=== PATIENT | female | born 1985 | race Caucasian/White ===

== ENCOUNTER 2022-03-13 12:10 | Outpatient (CLI) | payer OTHER, SELFPAY ==
--- NOTE | 2022-03-13 12:15 | CRLHL7_ITS ---
For Patients: As a result of the Century Cures Act, medical imaging exams and procedure reports are released immediately into your electronic medical record. You may view this report before your referring provider. If you have questions, please contact your health care provider. INDICATION: Third trimester scan, evaluate growth. COMPARISON: 12/05/2021 TECHNIQUE: Real time glez scale imaging of the fetus was performed. FINDINGS: Sonographic imaging demonstrates a single living intrauterine gestation. Fetus demonstrates a regular cardiac rate of 131 beats per minute. Fetus has a vertex position. The placenta lies fundal posterior. Amniotic fluid volume appears normal and there is a single deepest vertical pocket: 4.2 cm. The estimated weight is 2859gm which lies at the 82nd %. On the prior OB ultrasound exam dated 12/05/2021 the estimated weight was at the 90th%. BPD 69th percentile. HC 79th percentile. AC 88th percentile. FL 68th percentile. The HC/AC ratio measures 1.02 range (0.92-1.07). IMPRESSION: Sonographic gestational age 36 weeks 2 days and sonographic due date 04/08/2022. Sonographic age 10 days ahead of the clinical age. Estimated weight 82nd percentile. Abdominal circumference 88th percentile. Dictated by Allan Esqueda MD @ 03/13/2022 1:36:44 PM (Electronically Signed)
== END 2022-03-13 12:11 | disposition home or self-care (01) ==
LOC: US 12:11
PROVIDERS: PCP Family Medicine; Visit Provider Obstetrics & Gynecology
DX: Z34.93 Encounter for supervision of normal pregnancy, unspecified, third trimester (principal); Z3A.36 36 weeks gestation of pregnancy
CPT/HCPCS: 76816

== ENCOUNTER 2022-03-20 14:25 | Outpatient (CLI) | payer OTHER, SELFPAY ==
[2022-03-21 21:54] LABS: Strep B DNA Probe NEGATIVE (Negative)
== END 2022-03-20 14:26 | disposition home or self-care (01) ==
LOC: NFLDREF 14:25
PROVIDERS: PCP Family Medicine; Visit Provider Physician Assistant
DX: O09.523 Supervision of elderly multigravida, third trimester (principal); Z3A.35 35 weeks gestation of pregnancy
CPT/HCPCS: 87081; 87653

== ENCOUNTER 2022-03-26 03:49 | Inpatient (IN) | payer OTHER, SELFPAY ==
[2022-03-26] VITALS (78 sets, daily range): BP systolic 91–174; BP diastolic 50–104; PULSE 66–127; RESP 15–16; TEMP 36.6–37.6; O2SAT 91–100
[2022-03-26] MEDS: miSOPROStoL 25 MCG/0.25 TABLET PO ×2 (04:09→05:58)
--- NOTE | 2022-03-26 04:18 | P.OBHP_ITS ---
OB - H&P: HPI Labor/Induction History of Present Illness Time Seen by Provider: 04:18 Date Seen: 03/26/22 Chief Complaint: HPI: Mindi is a 36 year old 2 para 0010 at 36 and 5/7 weeks gestation by last menstrual period, who presents with possible leaking fluid and small amount of vaginal bleeding. On evaluation in triage AmniSure was positive. Irregular contractions that the patient was not feeling. Normal movement reported. She denies: Headache, visual changes, right upper quadrant/midepigastric pain, swelling, nausea/vomiting. LMP: 07/12/21. BRIDGETT = 04/18/22 by LMP c/w 10.5wk USN. Number of visits: 10 OBSTETRIC HISTORY Miscarriages: 1 miscarriage. Blighted ovum diagnosis at 8w5d suction D&C 05/2020 Abortions: denies GYNECOLOGIC HISTORY STDs: denies Last Pap: 05/25: Normal with negative HPV. Pap with HPV at her 6 week visit Abnormal Pap: denies MENSTRUAL HISTORY LMP: 07/12/21 Date Reliability: within a couple days accurate Menses Every: 28 days Amount/Length: 3-5 days, moderate CURRENT MEDICATIONS: See electronic medical record MEDICAL HISTORY depression, has previously seen a therapist, and taken Lexapro. Stopped 2018. 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 Doing good Seat Belt Use: Routinely Smoking: Denies past/present Alcohol/day: Denies while Caffeine: denies Drug Use: Denies past/present Chicken Pox: Yes as a child MRSA: Denies Planning to breastfeed: yes Chief complaint: Leaking fluid from the vagina. : 2 Para: 0 History of Present Dating criteria: based on LMP care: good care Ultrasounds: normal 1st trimester US and normal mid trimester US complications comment: PPROM at 36w5d. AMA. Review of Systems Status of ROS: Reports: 10 or more systems reviewed and unremarkable except as noted in History and below Meds Home Medications and Allergies Home Medications Medication Instructions Recorded Confirmed Type aspirin 81 mg chewable tablet 81 mg PO DAILY 02/13/22 03/20/22 History calcium citrate 200 mg 1 tab PO DAILY 02/13/22 03/20/22 History calcium-vitamin D3 6.25 mcg (250 unit) tablet prenat.vits,cass,cfd-dbrs-jtfjo 1 tab PO QDAY 02/13/22 03/20/22 History ferrous sulfate 325 mg (65 mg 325 mg PO DAILY 03/20/22 03/20/22 History iron) tablet Allergies Allergy/AdvReac Type Severity Reaction Status Date / Time strawberry Allergy Unknown Unknown Verified 03/20/22 14:20 OB - H&P: Exam Physical Exam: Vital signs: Pulse BP 80 147/83 H 03/26/22 03:37 03/26/22 03:37 Narrative: EXAM: VITAL SIGNS: Elevated BP. Remainder of vital signs normal. She is afebrile. GENERAL: She is alert and oriented times three in no acute distress. HEART: Regular rate and rhythm. LUNGS: Clear to auscultation bilaterally. ABDOMEN: Soft, nontender, and gravid with positive bowel sounds throughout. HEART TONES: 130's, moderate variability, (+) accels, (-) decels. Reactive. Category 1. PRESENTATION: Vertex by Gabriel's maneuvers. SVE per nursin cm/0 %/-4/post/med. Preston score 1 EXTREMITIES: Without cyanosis, clubbing, or edema. No varicosities are seen. NEUROLOGIC: DTR's at Bilateral patella: 2+/2 equal, no clonus. OB - Problem Based A/P Additional Plan (1) premature rupture of membranes (PPROM) with unknown onset of labor: Status: Acute Plan: 1. Admit to the center for induction of labor starting with p.o. Cytotec due to extremely unfavorable cervical exam 2. GBS negative so does not require antibiotic prophylaxis in labor. (2) Elevated BP without diagnosis of hypertension: Status: Acute Plan: 1. Preeclampsia labs ordered: CBC without diff, AST, ALT, creatinine, BUN and urine P/C ratio: Results pending. 2. Continue to monitor blood pressure closely. Start magnesium prophylaxis for severe preeclampsia. Patient denies symptoms of headache, visual changes, swelling, right upper quadrant/midepigastric pain and nausea/vomiting
[2022-03-26 04:26] LABS: Hematocrit 34.3 % (33.0-51.0); Hemoglobin* 11.8 gm/dL (12.0-16.0); Mean Corpuscular HGB Conc 34 gm/dL (32-36); Mean Corpuscular Hemoglobin 32 pg (26-34); Mean Corpuscular Volume 92 fL (80-100); Platelet Count* 175 K/uL (140-440); Red Blood Count 3.72 m/uL (4.00-5.20); White Blood Count* 13.36 K/uL (4.50-11.00)
[2022-03-26 04:29] LABS: Slide Review Reflex No
[2022-03-26 04:39] LABS: Alanine Aminotransferase* 18 U/L (4-35); Aspartate Amino Transferase* 28 U/L (12-35); Blood Urea Nitrogen* 5 mg/dL (5-24); Creatinine* 0.4 mg/dL (0.5-1.5); Estimated Glomerular Filt Rate 130 ml/min
[2022-03-26 04:40] LABS: Total Protein Urine 54 mg/dL
[2022-03-26 04:41] LABS: Creatinine Urine 51.2 mg/dL
[2022-03-26 05:16] LABS: SARS PCR* Negative SARS-CoV-2 (Negative)
[2022-03-26 05:18] LABS: Amphetamine Screen Urine Negative (Negative); Barbiturate Screen Urine Negative (Negative); Benzodiazepines Screen Urine Negative (Negative); Cannabinoid Screen Urine Negative (Negative); Cocaine Screen Urine Negative (Negative); Methadone Screen Urine Negative (Negative); Methamphetamines Screen Urine Negative (Negative); Opiate Screen Urine Negative (Negative); Oxycodone Screen Urine Negative (Negative); Phencyclidine Screen Urine Negative (Negative); Tricyclic Antidepressant Urine Negative (Negative)
[2022-03-26] MEDS: LACTATED RINGERS 1000 ML 1,000 ML 500 ML IV (08:45)
[2022-03-26 09:21] LABS: Basophils Percent Auto 0.2 % (0.0-3.0); Eosinophils Percent Auto 0.6 % (0.0-7.0); Hematocrit 35.4 % (33.0-51.0); Immature Granulocytes Abs Auto 0.13 K/uL (0.00-0.30); Lymphocytes Percent Auto 8.6 % (20-44); Mean Corpuscular HGB Conc 34 gm/dL (32-36); Mean Corpuscular Hemoglobin 31 pg (26-34); Mean Corpuscular Volume 92 fL (80-100); Monocytes Percent Auto 5.7 % (0.0-11.0); Neutrophils Percent Auto 84.1 % (42.0-72.0); Platelet Count* 171 K/uL (140-440); RDW Coefficient of Variation % 15.2 % (11.5-15.5); Red Blood Count 3.84 m/uL (4.00-5.20); White Blood Count* 15.54 K/uL (4.50-11.00)
[2022-03-26 09:23] LABS: Slide Review Reflex No
[2022-03-26 09:34] LABS: INR 0.92 (0.91-1.10); Partial Thromboplastin Time* 27 Seconds (23-33); Prothrombin Time 12.7 Seconds
[2022-03-26 09:35] LABS: Fibrinogen* 472 mg/dL (200-450)
--- NOTE | 2022-03-26 09:43 | P.OBPN_ITS ---
Pain Control Time Seen by Provider: 08:30 Date Seen: 03/26/22 Pain control: tolerating well (But desires epidural soon) Comments: Mindi, has had 2 doses of cytotec. At bedside to assess her labor. RN expressed concerns about amount of bleeding. Mod-large amount of thin liquid-y blood noted on pad previous pad and on the floor of the bathroom. Pt states feeling increased cramping/ctx. Able to tolerate them, but will likely desire epidural soon. Partner at bedside for support. Contractions Monitor mode: External Contraction frequency: 2 Contraction pattern: Regular Contraction intensity: Mild (mild - mod) Pelvic Exam Dilation (cm): 3 Effacement (%): 70 Station: -2 Fetus (Single) Amniotic Membrane Status: SROM Assessment and Plan Plan: continue present management Comments: at 36.5 weeks GBS neg PROM Preeclampsia w/o severe features R/o abruption Dr Mendez consulted for concerns of increased bleeding. Stable mom and fetus at this time. Decision made to hold labor augmentation at this time to allow for further assessment and monitoring. Will consider pitocin for augmentation if needed. CBC and coags ordered. If WNL, pt may have epidural as desired. Continue to monitor blood pressures Continuous monitoring. Call CNM or OB director of recruitment and admissions for concerns Pt aware to notify RN if having any increased pain or bleeding. Anticpate progress to NVD.
--- NOTE | 2022-03-26 09:54 | PM.OBPNL ---
Pain Control Date Seen: 03/26/22 Comments: I was consulted by Funmi Burnham CNM, for concern regarding the amount of bleeding that Mindi has had. Funmi reports watery bleeding. Patient has received two doses of oral cytotec at this point. Mindi reports increasing pain with contractions and has requested an epidural. Mindi also has preeclampsia, currently without severe features. HELLP labs have been stable, and her most recent blood pressure was 128/94. On exam, her abdomen is soft. By Gabriel's, I suspect infant is in the 7 lb range. Her complete blood count shows no anemia or thrombocytopenia, and her INR and PTT are within normal ranges. Fibrinogen is appropriately elevated. Contractions Monitor mode: External Contraction frequency: 2 Contraction pattern: Regular Pelvic Exam Dilation (cm): 3 Effacement (%): 70 Station: -2 Comments: per Funmi Burnham CNM Fetus (Single) Amniotic Membrane Status: SROM status: Category l Comments: Baseline 125, accelerations present, no decelerations, moderate variability Assessment and Plan Assessment: induction ongoing Comments: Patient may have epidural as desired. Continue to monitor bleeding and vital signs. If labor does not progress, Pitocin augmentation would be appropriate as next intervention.
[2022-03-26] MEDS: ROPIVACAINE 0.2% 100 ml 100 ML 12 MG EPIDURAL ×2 (10:11→18:02)
--- NOTE | 2022-03-26 10:21 | P.ANBPRC_ITS ---
[facility] Medical History (Updated 03/26/22 @ 07:23 by Malika Huertas MD) Encounter for supervision of normal first in second trimester History of iron deficiency anemia Mild preeclampsia premature rupture of membranes (PPROM) with unknown onset of labor Surgical History (Updated 02/12/22 @ 08:41 by Adamaris Mckeon) Status post adenoidectomy Family History (Updated 02/02/22 @ 11:48 by Adamaris Mckeon) Mother Depression Anxiety OCD (obsessive compulsive disorder) High blood pressure Brother Depression Maternal Grandfather Myocardial infarction, Onset Age: 80 Father Colon cancer, Onset Age: 50 Depression Maternal Grandmother Lung cancer Social History (Updated 02/02/22 @ 11:49 by Adamaris Mckeon) 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: , 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, 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-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 Social drinker (2/week) Smoking Status: Never smoker Meds Home Medications and Allergies Home Medications Medication Instructions Recorded Confirmed Type aspirin 81 mg chewable tablet 81 mg PO DAILY 02/13/22 03/26/22 History calcium citrate 200 mg 1 tab PO DAILY 02/13/22 03/26/22 History calcium-vitamin D3 6.25 mcg (250 unit) tablet prenat.vits,cass,rxu-luex-atfya 1 tab PO QDAY 02/13/22 03/26/22 History ferrous sulfate 325 mg (65 mg 325 mg PO DAILY 03/20/22 03/26/22 History iron) tablet Allergies Allergy/AdvReac Type Severity Reaction Status Date / Time strawberry Allergy Unknown Unknown Verified 03/20/22 14:20 Results Labs Labs: Laboratory Results - last 24 hr 03/26/22 03/26/22 03/26/22 04:10 04:10 04:10 WBC RBC Hgb Hct MCV MCH MCHC RDW Coeff of Shyla Plt Count Neut % (Auto) Lymph % (Auto) Christian % (Auto) Eos % (Auto) Baso % (Auto) Neut # (Auto) Lymph # (Auto) Christian # (Auto) Eos # (Auto) Baso # (Auto) Abs Immat Gran (auto) INR APTT Fibrinogen BUN Creatinine Estimated GFR AST ALT Urine Creatinine 51.2 Protein/Creatinin Ratio 1.00 H Urine Total Protein 54 Urine Opiates Screen Negative Ur Oxycodone Screen Negative Urine Methadone Screen Negative Ur Propoxyphene Screen Negative Ur Barbiturates Screen Negative U Tricyclic Antidepress Negative Ur Phencyclidine Scrn Negative Ur Amphetamines Screen Negative U Methamphetamines Scrn Negative U Benzodiazepines Scrn Negative Urine Cocaine Screen Negative U Marijuana (THC) Screen Negative SARS-CoV-2 (PCR) Negative SARS-CoV-2 Blood Type Antibody Screen 03/26/22 03/26/22 03/26/22 04:15 04:15 04:15 WBC 13.36 H RBC 3.72 L Hgb 11.8 L Hct 34.3 MCV 92 MCH 32 MCHC 34 RDW Coeff of Shyla Plt Count 175 Neut % (Auto) Lymph % (Auto) Christian % (Auto) Eos % (Auto) Baso % (Auto) Neut # (Auto) Lymph # (Auto) Christian # (Auto) Eos # (Auto) Baso # (Auto) Abs Immat Gran (auto) INR APTT Fibrinogen BUN 5 Creatinine 0.4 L Estimated GFR 130 AST 28 ALT 18 Urine Creatinine Protein/Creatinin Ratio Urine Total Protein Urine Opiates Screen Ur Oxycodone Screen Urine Methadone Screen Ur Propoxyphene Screen Ur Barbiturates Screen U Tricyclic Antidepress Ur Phencyclidine Scrn Ur Amphetamines Screen U Methamphetamines Scrn U Benzodiazepines Scrn Urine Cocaine Screen U Marijuana (THC) Screen SARS-CoV-2 (PCR) Blood Type A Positive Antibody Screen NEGATIVE 03/26/22 03/26/22 09:13 09:13 WBC 15.54 H RBC 3.84 L Hgb 12.0 Hct 35.4 MCV 92 MCH 31 MCHC 34 RDW Coeff of Shyla 15.2 Plt Count 171 Neut % (Auto) 84.1 H Lymph % (Auto) 8.6 L Christian % (Auto) 5.7 Eos % (Auto) 0.6 Baso % (Auto) 0.2 Neut # (Auto) 13.10 H Lymph # (Auto) 1.30 Christian # (Auto) 0.90 Eos # (Auto) 0.10 Baso # (Auto) 0.00 Abs Immat Gran (auto) 0.13 INR 0.92 APTT 27 Fibrinogen 472 H BUN Creatinine Estimated GFR AST ALT Urine Creatinine Protein/Creatinin Ratio Urine Total Protein Urine Opiates Screen Ur Oxycodone Screen Urine Methadone Screen Ur Propoxyphene Screen Ur Barbiturates Screen U Tricyclic Antidepress Ur Phencyclidine Scrn Ur Amphetamines Screen U Methamphetamines Scrn U Benzodiazepines Scrn Urine Cocaine Screen U Marijuana (THC) Screen SARS-CoV-2 (PCR) Blood Type Antibody Screen Vital Signs Vital Signs: Last Vital Signs Temp 98 F 03/26/22 10:16 Pulse 80 03/26/22 10:20 Resp 15 03/26/22 04:15 BP 129/87 03/26/22 10:20 Pulse Ox 100 03/26/22 10:16 Weight: 85.956 kg Anesthesia Procedures Epidural Insertion Patient Location: OB Start Time: : Stop Time: 10:30 Start Date: 03/26/22 Stop Date: 03/26/22 Reason for Block: procedure for pain Patient Position: sitting Performed By: Pedro Knutson Preanesthetic Checklist: IV checked, risks and benefits discussed, surgical consent, monitors and equipment checked, pre-op evaluation, timeout performed and anesthesia consent Prep: chlorhexidine gluconate Monitoring: blood pressure monitoring, continuous pulse oximetry and heart rate Approach: midline Vertebral Space: lumbar (1-5) Epidural Technique: SAVANNAH saline Needle Type: Tuohy needle Injection Technique: continuous catheter Needle gauge: 17 Needle Length (cm): 10 cm Needle Insertion Depth (cm): 6 Catheter Gauge: 19 Catheter Type: multi-orifice Catheter at skin depth (cm): 12 Test Dose Result: negative and lidocaine 1.5% with epinephrine 1 to 200,000
--- NOTE | 2022-03-26 11:41 | PM.OBPNL ---
Pain Control Time Seen by Provider: 11:42 Date Seen: 03/26/22 Pain control: epidural Comments: Mindi is comfortable with her epidural. Partner remains at bedside for support. Bleeding has slowed at this time. Contractions Monitor mode: External Contraction frequency: 3 (1-3) Contraction pattern: Regular Contraction intensity: Mild (mild - mod) Pelvic Exam Dilation (cm): 4 Effacement (%): 80 Station: -2 Fetus (Single) Amniotic Membrane Status: SROM status: Category l Assessment and Plan Plan: continue present management Comments: at 36.5 weeks GBS neg Preeclampsia w/o severe features PROM Early labor after cytotec X 2 doses Less concern for abruption as bleeding has slowed and ctx pattern has evolved to 2-3 min. Will continue to monitor closely. Continue to monitor BPs closely, WNL since epidural placement. Consider pitocin augmentation if little change w/ next exam. Dr. Mendez aware of status.
[2022-03-26] MEDS: LACTATED RINGERS 1000 ML 1,000 ML 125 ML IV ×2 (16:08→22:49)
--- NOTE | 2022-03-26 20:38 | SUR.OPER ---
PATIENT QUESTIONS ANSWERED SATISFACTORILY PREOPERATIVELY.? PATIENT BROUGHT TO OR #5 PER CART.? Patient positioned supine on OR #5 bed.? The perioperative?team supported arms bilaterally on arm boards.? Final approval of positioning by surgeon.?
[2022-03-26] MEDS: KETOROLAC 15 MG/ML inj IVP (20:41)
--- NOTE | 2022-03-26 21:15 | PM.OBPRCCS ---
Procedure Pre-op/Post-op diagnoses: Pre-Op/Post-Op Diagnoses Operation Date: 03/26/22 20:00 <No data on this case meets the specified criteria> Procedure Done: Global Procedure Details: Procedures Operation Date: 03/26/22 20:00 Actual Procedure Side Surgeon p Section Xin Mendez MD Estimated blood loss (mL): 1,178 Disposition: floor Anesthesia type: Epidural Complications: Leftward hysterotomy extension and intraoperative hemorrhage Narrative: PREOPERATIVE DIAGNOSIS: Arrest of descent POSTOPERATIVE DIAGNOSIS: Arrest of descent Paratubal cysts PROCEDURES: Primary low-transverse section Paratubal cystectomies SURGEON: Xin Mendez MD ANESTHESIA: Epidural IV FLUIDS: 900 mL crystalloid QBL: 1178 mL FINDINGS: 1. Male , cephalic OA presentation, Apgars of 8 and 9, weight pending at time of this dictation 2. Long inferior extension of hysterotomy along the left side approximating the cervix and upper vagina. 3. Two simple paratubal cysts, 3 and 2 cm in greatest dimension. 4. Otherwise appearance to uterus, bilateral tubes and ovaries. COMPLICATIONS: Leftward hysterotomy extension approximately to level of cervix PROCEDURE IN DETAIL: Patient was taken to the operating room with IV running. She received cefazolin in preoperative prophylaxis. Epidural anesthesia had previously been administered. Salinas catheter was inserted. She was prepped and draped in the usual sterile fashion. Anesthesia was tested and found to be adequate. A low-transverse skin incision was made with a scalpel and carried through to the underlying layer of fascia with the scalpel. The subcutaneous fat was dissected off the underlying fascia with Bovie. The fascia was nicked in the midline with a scalpel, and this incision was extended laterally with scissors. The rectus muscles were in the midline. Peritoneum was identified and entered bluntly. Bovie was used to widen this opening laterally. John Paul O retractor was inserted and tightened down, providing excellent visualization of the lower uterine segment. The bladder reflection was found to be advanced along the lower uterine segment. A bladder flap was created with a combination of sharp and blunt dissection. Low-transverse uterine incision was made with a scalpel. Incision was widened bluntly. The infant's head was grasped through the hysterotomy and delivered with the help of fundal pressure. The remainder of the body delivered without incident. Cord was clamped and cut after 30 seconds. Infant was handed off to attending nurses. The placenta was delivered with gentle traction on the cord. The uterus was cleaned of all clots and debris with the dry lap pad. Abundant bleeding was noted at this time. The leftward hysterotomy extension was not initially visible due to bleeding. Therefore, a running, lock suture was used along the left inferior aspect of the incision, moving medially to laterally, and till visualization was obtained of the angle of the extension. This was then reapproximated with 0 Vicryl in a running, locked fashion, continuing through to to the right angle of the hysterotomy. Second layer of the same suture was used in imbricating fashion to obtain hemostasis. There was persistent oozing noted along this hysterotomy extension. To clarify the location of the bladder reflection, the bladder was back filled with 60 mL of sterile formula. This confirmed that the bladder was immediately adjacent to the hysterotomy extension, despite dissection of the bladder flap. Gelfoam was placed along this extension. The uterus had been exteriorized during much of the reapproximation of this extension. The adnexa were examined with findings as noted above. The anti mesenteric surface of the largest paratubal cyst was nicked with Bovie. The overlying portions of the broad ligament surrounding it were dissected off sharply, and the vascular pedicle was divided with Bovie. The smaller paratubal cyst was pulled away from the fimbria with gentle traction, and the vascular pedicle was divided with Bovie. Bovie was used for hemostasis at the dissection bed of the larger cyst. Both cysts were sent to pathology. The uterus was placed back in patient's abdomen. The John Paul O retractor was removed. The hysterotomy was reexamined and found to be hemostatic along its entire length, including the extension. An additional small piece of Gelfoam was placed adjacent to the left most angle of the extension. The peritoneum was reapproximated with 2 0 Vicryl in a running fashion. The rectus muscles were examined and found to be hemostatic. The fascia was reapproximated with 0 Vicryl in a running fashion. Subcutaneous fat was irrigated and Bovie used on oozing vessels. The subcutaneous fat was reapproximated with 2 0 plain gut suture in an interrupted fashion. The skin was closed with a subcuticular stitch of 4-0 Vicryl. Surgical glue was applied above this. Patient tolerated procedure well was taken to recovery area in stable condition. [place] total score - 1 minute: 8 total score - 5 minute: 9 OB Delivery Proc Additional Procedures Other: Yes (excision of paratubal cystsssss)
--- NOTE | 2022-03-26 21:36 | W.PM.NB ---
Nerve Block Nerve Block Time Seen by Provider: 21:05 Date Seen: 03/26/22 Type of block requested by surgeon for post-operative analgesia: TAP Side: bilateral Time out performed: Yes Verification of patient name: Yes Verification of date of : Yes Site marking: site marked Name of person performing procedure: DIANE Haq Continuous monitoring Was continuous monitoring of O2 sat, B/P, surveillance system monitor, recorded every 15 minutes?: Yes Procedure Checklist: sterile prep, needles and gloves Ultrasound guided. Images saved: Yes Medications given in 5ml increments after negative aspiration: Marcaine (15 ml/side, 30 ml total) %: 0.25 mL: 15 Needle gauge: 20 and Exparel (5ml/side, 10 total) mL: 5 Needle gauge: 20 Patient tolerated procedure well: Yes Block Charges Block Charge (with Pro Fee): TAP Bilateral Use of Ultrasound Machine for Block: Yes- US Guidance/pain block
[2022-03-27] VITALS (22 sets, daily range): BP systolic 114–133; BP diastolic 74–93; PULSE 80–105; RESP 16; TEMP 36.7–37.3; O2SAT 95–100
[2022-03-27] MEDS: KETOROLAC 30 MG/ML inj IVP ×4 (02:47→21:41)
[2022-03-27 07:01] LABS: Basophils Percent Auto 0.1 % (0.0-3.0); Eosinophils Percent Auto 0.1 % (0.0-7.0); Hemoglobin* 9.6 gm/dL (12.0-16.0); Immature Granulocytes Abs Auto 0.11 K/uL (0.00-0.30); Lymphocytes Percent Auto 7.4 % (20-44); Mean Corpuscular HGB Conc 34 gm/dL (32-36); Mean Corpuscular Hemoglobin 32 pg (26-34); Mean Corpuscular Volume 93 fL (80-100); Monocytes Percent Auto 6.9 % (0.0-11.0); Platelet Count* 170 K/uL (140-440); RDW Coefficient of Variation % 15.7 % (11.5-15.5); White Blood Count* 23.05 K/uL (4.50-11.00)
[2022-03-27 07:02] LABS: Slide Review Reflex No
[2022-03-27] MEDS: LACTATED RINGERS 1000 ML 500 ML IV (07:03)
[2022-03-27 07:32] LABS: Alanine Aminotransferase* 14 U/L (4-35); Aspartate Amino Transferase* 31 U/L (12-35); Blood Urea Nitrogen* 8 mg/dL (5-24); Creatinine* 0.6 mg/dL (0.5-1.5); Estimated Glomerular Filt Rate 118 ml/min
[2022-03-27] MEDS: DOCUSATE SODIUM 100 MG CAPSULE PO (08:45)
[2022-03-27] MEDS: FERROUS SULFATE 325 MG TABLET PO (08:45)
--- NOTE | 2022-03-27 09:10 | PM.OBPNCS1 ---
OB - PN: A/P Assessment and Plan (1) premature rupture of membranes (PPROM) with unknown onset of labor: Status: Acute (2) Elevated BP without diagnosis of hypertension: Status: Resolved Plan Plan: routine postop care OB - PN: Subj Subjective Date Seen: 03/27/22 Patient comments: no complaints, pain well controlled, tolerating diet and flatus present infant status: and doing well feeding status: exclusively Narrative: Day 1:? Vaginal Delivery at 36 and 5/7 weeks.? ?? Complications:? extension of hysterotomy with QBL 1178. Inadequate urine output overnight. The patient feels well.? The pain is well controlled with current medications.? She has no new complaints.? Urinary output was not adequate overnight. IV bolus completed. Salinas catheter remains in place. If adequate output after the bolus ok to remove urine Salinas.? Has a good appetite, is tolerating a general diet, is passing flatus, and has not had a bowel movement.? Has?scant amount of rubra lochia.? She is ambulating well with assistance to stand. Hgb 9.6. PO iron was previously ordered.? 36 year old on day 1.? 1. cares.? 2. Anticipate discharge tomorrow or Wednesday.? OB - PN: Obj Exam Physical Exam: Vital signs: Temp Pulse Resp BP Pulse Ox O2 Del Method 99.2 F 80 16 114/74 96 03/27/22 04:08 03/27/22 04:08 03/27/22 06:30 03/27/22 04:08 03/27/22 04:08 03/27/22 04:08 Constitutional: Constitutional: no acute distress Routine HEENT Exam: Head: Present normal inspection Routine Neck Exam: Neck: Present full ROM Routine Respiratory Exam: Respiratory: Present CTA bilaterally Routine Cardiovascular Exam: Cardiovascular: Present RRR Routine Abdominal Exam: Abdominal: Present soft and tenderness Fundus: Present firm Routine Exam: External: Present normal external exam Perineum Description: Normal Routine Extremities Exam: Extremities: Present full ROM Routine Back/Spine/Pelvis Exam: Back/Spine: Present full ROM Routine Neurological Exam: Neurological: Present alert and oriented X3 Routine Psychiatric Exam: Psychiatric: Present normal affect and normal thought process Wound Management: Examination: Present dressed, clean, dry and intact Comments: small dime sized area of drainage marked on the dressing OB - PN: Obj Data Labs Labs: Laboratory Results - last 24 hr 03/26/22 03/26/22 03/27/22 09:13 09:13 06:47 WBC 15.54 H 23.05 H RBC 3.84 L 3.00 L Hgb 12.0 9.6 L Hct 35.4 28.0 L MCV 92 93 MCH 31 32 MCHC 34 34 RDW Coeff of Shyla 15.2 15.7 H Plt Count 171 170 Neut % (Auto) 84.1 H 85.0 H Lymph % (Auto) 8.6 L 7.4 L Kendall % (Auto) 5.7 6.9 Eos % (Auto) 0.6 0.1 Baso % (Auto) 0.2 0.1 Neut # (Auto) 13.10 H 19.60 H Lymph # (Auto) 1.30 1.70 Kendall # (Auto) 0.90 1.60 H Eos # (Auto) 0.10 0.00 Baso # (Auto) 0.00 0.00 Abs Immat Gran (auto) 0.13 0.11 INR 0.92 APTT 27 Fibrinogen 472 H BUN Creatinine Estimated GFR AST ALT 03/27/22 03/27/22 06:47 06:47 WBC RBC Hgb Cancelled Hct MCV MCH MCHC RDW Coeff of Shyla Plt Count Neut % (Auto) Lymph % (Auto) Kendall % (Auto) Eos % (Auto) Baso % (Auto) Neut # (Auto) Lymph # (Auto) Kendall # (Auto) Eos # (Auto) Baso # (Auto) Abs Immat Gran (auto) INR APTT Fibrinogen BUN 8 Creatinine 0.6 Estimated GFR 118 AST 31 ALT 14
[2022-03-28 00:32] VITALS: BP 131/84; PULSE 87; RESP 16; TEMP 36.4; O2SAT 100
[2022-03-28] MEDS: KETOROLAC 30 MG/ML inj IVP (03:48)
[2022-03-28 03:52] VITALS: BP 126/81; PULSE 73; RESP 16; TEMP 36.8; O2SAT 96
[2022-03-28 08:30] VITALS: BP 142/89; PULSE 71; RESP 16; TEMP 36.5; O2SAT 100
[2022-03-28] MEDS: DOCUSATE SODIUM 100 MG CAPSULE PO (08:37)
[2022-03-28] MEDS: FERROUS SULFATE 325 MG TABLET PO (08:37)
[2022-03-28] MEDS: IBUPROFEN 600 MG TABLET PO ×3 (08:37→20:19)
--- NOTE | 2022-03-28 10:29 | PM.OBDSCS1 ---
DS: Providers Provider Time Seen by Provider: 10:29 Date Seen: 03/28/22 Date of admission: 03/26/22 03:49 Primary care physician: Flor Patel MD Admitting Clinician: Rosaura Martínez CNM Consults: Xin Mendez MD Attending Physician on discharge: Malika Huertas MD Date of Discharge: 03/28/22 DS: Diagnosis Discharge Diagnosis (1) S/P primary low transverse : Status: Acute (2) Mild preeclampsia: Status: Acute (3) premature rupture of membranes (PPROM) with unknown onset of labor: Status: Acute (4) AMA (advanced maternal age) multigravida 35+: Status: Resolved (5) AMA (advanced maternal age) primigravida 35+: Status: Acute (6) Anemia due to acute blood loss: Status: Acute (7) Lactating mother: Status: Acute DS: Medications Discharge Medications Other Medication Instructions: See discharge medication list Exam Const: Vital Signs, click to edit/add: Vital Signs - 24 hr 03/27/22 11:00 03/27/22 12:00 03/27/22 11:50 Temperature 98.9 F Pulse Rate [Pulse Oximeter] 104 H Respiratory Rate 16 16 16 Blood Pressure [Le ft Arm] 115/83 Pulse Oximetry 96 Oxygen Delivery Me thod Room Air 03/27/22 13:00 03/27/22 14:00 03/27/22 15:00 Temperature Pulse Rate [Pulse Oximeter] Respiratory Rate 16 16 16 Blood Pressure [Le ft Arm] Pulse Oximetry Oxygen Delivery Me thod 03/27/22 16:00 03/27/22 15:40 03/27/22 20:19 Temperature 98.1 F 98.1 F Pulse Rate [Pulse Oximeter] 105 H 96 Respiratory Rate 16 16 Blood Pressure [Le ft Arm] 127/93 H 126/85 Pulse Oximetry 100 100 Oxygen Delivery Me thod Room Air Room Air 03/27/22 19:37 03/28/22 00:32 03/28/22 03:52 Temperature 97.6 F 98.2 F Pulse Rate [Pulse Oximeter] 87 73 Respiratory Rate 16 16 16 Blood Pressure [Le ft Arm] 131/84 126/81 Pulse Oximetry 100 96 Oxygen Delivery Me thod Room Air Room Air 03/28/22 08:30 Temperature 97.7 F Pulse Rate [Pulse Oximeter] 71 Respiratory Rate 16 Blood Pressure [Le ft Arm] 142/89 H Pulse Oximetry 100 Oxygen Delivery Me thod Room Air OB - DS: Summary Hospital Course Hospital Course: HOSPITAL COURSE: Mindi is a 36 year old, G 2 now P 0111 admitted on 03/26/2022 at 3:00 a.m. at 36 Weeks, 5 Days gestation for pre term premature rupture of membranes. She had an uncomplicated primary low-transverse delivery for arrest of dilation. She delivered a viable male infant. She is breast and bottle feeding and reports things are going well. the patient has done well. Her blood pressure started rising this morning so she was started on labetalol 100 mg b.i.d. and was discharged home with this medication. I encouraged her to follow up next week for blood pressure check in the office. She has remained afebrile. DISCHARGE Vital Signs: See EMR Discharge Examination GENERAL APPEARANCE: normal affect, alert, no distress MOOD: appropriate CHEST: clear to auscultation HEART: regular rate and rhythm ABDOMEN: soft, non-tender the uterine fundus is at 2cm below Umbilicus, Midline and is appropriate for the stage of recovery. PERINEUM: no edema of the perineum EXTREMITIES: normal and no edema INCISION: Approximated, clean, dry and intact. Discharge Medication Orders: See New Medication Orders Disposition She is requesting discharge home. Discharge Instructions Discharge Instructions Discharge instructions were reviewed with the patient including signs and symptoms of infection and medications to use for pain. She will follow up in 6 weeks for a visit, sooner as needed. Symptoms to report to doctor: Drainage or increase in redness around your incision Bleeding that saturates more than one pad per hour Passing clots larger than the size of a golf ball Pain not relieved by prescribed medication Fever above 100.4 degrees Fahrenheit Foul vaginal odor Difficulty in emotions, mood and functions Thoughts of hurting yourself and/or Painful, reddened areas in your breast Any drainage, redness or tenderness in your IV/spinal site Severe headache that doesn't improve after taking medications Changes in vision, including temporary loss of vision, blurred vision, and/or light sensitivity Upper abdominal pain (usually under ribs on the right side) Decrease in urination or painful, frequent urinating Chest pain Shortness of breath Tenderness or pain with redness and/swelling in the calf(s) of your leg Nothing per Vagina: No intercourse, No tampons, No douching, For [address]: While taking [narcotic pain] medication. Lifting Restriction: 20 lbs Lifting Restriction Duration: 6 weeks Off Work or School: 8 weeks Follow Up Plan Surgeon Xin Mendez MD in 2 weeks for an incision check A nurse cotton presser, PA or BUMBOATER for the following: For a Blood pressure check next week between 03/30/22-04/01/22 Follow up visit with any Women's health clinic provider: at 6 weeks for a physical exam. Referrals Consultation: consultation services are available to all mothers and babies for the first year after delivery. To make an appointment, please call [phone]. Peripartum Data Procedures: Procedures Operation Date: 03/26/22 20:00 Actual Procedure Side Surgeon p Section Xin Mendez MD Gender: Male Time Spent with Patient Time attestation: Total time spent providing and/or coordinating discharge services: Discharge Plan Discharge Disposition: Home, Self-Care Date of Admission: 03/26/22 03:49 Attending Provider on Discharge: Malika Huertas Primary Care Provider: Flor Patel Condition: Improved Anticipated Discharge Date/Time: 03/29/22 21:08 Discharge Medications: New acetaminophen 500 mg Tablet 1,000 mg PO Q6H PRN (Reason: pain/fever) Qty: 0 0RF docusate sodium 100 mg Capsule 100 mg PO DAILY Qty: 0 0RF ibuprofen 600 mg Tablet 600 mg PO Q6H PRN (Reason: Pain) 30 Days Qty: 60 0RF oxycodone 5 mg Tablet 5 - 10 mg PO Q4H PRN (Reason: Pain) 7 Days Qty: 20 0RF labetalol 100 mg tablet 100 mg PO BID Qty: 60 2RF Continued prenat.vits,cass,wqn-wazm-upjjb Tablet 1 tab PO QDAY calcium citrate-vitamin D3 200 mg-6.25 mcg (250 unit) tablet 1 tab PO DAILY ferrous sulfate 325 mg (65 mg iron) tablet 325 mg PO DAILY Discontinued aspirin 81 mg tablet,chewable 81 mg PO DAILY Discharge Orders: Discharge Order (Routine); Ordered 03/28/22 Ordered By: Malika Huertas Patient Education: Preeclampsia During (DC), (DC) Discharge Diet: Regular Follow Up Appointments: Malika Huertas MD [Staff Physician] - Flor Patel MD [Primary Care Provider] - Xin Mendez MD [Staff Physician] - Forms: [employer] Info Instructions
[2022-03-28 12:20] VITALS: BP 126/86; PULSE 84; RESP 16; TEMP 36.7; O2SAT 100
[2022-03-28 16:05] VITALS: BP 127/86; PULSE 73; RESP 16; TEMP 36.4; O2SAT 99
[2022-03-28 20:10] VITALS: BP 121/79; PULSE 73; RESP 16; TEMP 36.9; O2SAT 98
[2022-03-28] MEDS: LABETALOL HCL 100 MG TABLET PO (20:19)
[2022-03-29 00:15] VITALS: BP 124/75; PULSE 73; RESP 16; TEMP 36.6; O2SAT 99
[2022-03-29 03:24] VITALS: BP 114/73; PULSE 75; RESP 16; TEMP 36.8
[2022-03-29] MEDS: IBUPROFEN 600 MG TABLET PO ×3 (03:27→15:19)
[2022-03-29 09:05] VITALS: BP 131/86; PULSE 75; RESP 18; TEMP 37.2; O2SAT 100
[2022-03-29] MEDS: LABETALOL HCL 100 MG TABLET PO (09:14)
[2022-03-29] MEDS: DOCUSATE SODIUM 100 MG CAPSULE PO (09:14)
[2022-03-29] MEDS: FERROUS SULFATE 325 MG TABLET PO (09:14)
[2022-03-29 12:55] VITALS: BP 123/83; PULSE 76; RESP 16; TEMP 36.4; O2SAT 99
== END 2022-03-29 15:22 | disposition home or self-care (01) | DRG 784 ==
LOC: OB OUT 03:49 → OB 03:51
PROVIDERS: Obstetrics & Gynecology; Admitting Provider Advanced Practice Midwife; PCP Family Medicine; Visit Provider Obstetrics & Gynecology
PROC: 10D00Z1 Extraction of Products of Conception, Low, Open Approach (ICD-10-PCS; CPT 59514; principal; 2022-03-26 19:45)
DX: O42.913 Preterm premature rupture of membranes, unspecified as to length of time between rupture and onset of labor, third trimester (principal); D62 Acute posthemorrhagic anemia; O90.81 Anemia of the puerperium; O14.04 Mild to moderate pre-eclampsia, complicating childbirth; O32.4XX0 Maternal care for high head at term, not applicable or unspecified; O34.83 Maternal care for other abnormalities of pelvic organs, third trimester; N83.8 Other noninflammatory disorders of ovary, fallopian tube and broad ligament; Z3A.36 36 weeks gestation of pregnancy; Z37.0 Single live birth
CPT/HCPCS: 01967; 36415; 59200; 64488; 76942; 80306; 82565; 82570; 84112; 84156; 84450; 84460; 84520; 85018; 85025; 85027; 85384; 85610; 85730; 86850; 86900; 86901; 87635; 88304; 88307; A9270; C9290; J1200; J1885; J2274; J2405; J2590; J2795; J3010; J3490; J7120; S0020

== ENCOUNTER 2022-05-11 14:07 | Outpatient (CLI) | payer OTHER, SELFPAY ==
--- NOTE | 2022-05-15 12:59 | W.PM.LAC.MC ---
Consult Note - Mom Date of Visit Date of visit: 05/11/22 staffing consultant: Rosa Elena Marin Visit Code: Visit Patient's Information Phone number: [phone] : 2 Para: 1 Allergies strawberry Allergy (Unknown, Verified 05/11/22 13:07) Unknown Mother's Medical History: Medical History (Updated 05/12/22 @ 15:43 by Xin Mendez MD) AMA (advanced maternal age) multigravida 35+ Anemia due to acute blood loss Depression Mild preeclampsia premature rupture of membranes (PPROM) with unknown onset of labor Work Plans: returns to work in 6 weeks Delivery Information Delivery type: Primary C/S; Labored (FTP) Weeks Gestation: 36 0/7 Gestational Age: AGA Weight: 3.487 kg Discharge Weight: 3.192 kg Baby's Information Baby's Age at Visit: 6 weeks Baby's Provider or Clinic: Dr. Camarillo ([facility] in [place]) Reason for Consult Reason for Consult: still having some trouble with latching, concern for lip tie Past Experience Past Experience: No Current Frequency of Day Feedings: about every 2 - 3 hours Frequency of Night Feedings: goes a little longer between feedings, but still wakes to feed 1 - 2 times Both Breasts: Yes Suck: fairly strong Latch: doesn't always have a good seal, milk sometimes leaks out of mouth Length of Time: feedings can take up to an hour Pumping Pumping: Yes (uses the wireless pump on the side baby doesn't nurse on ) Supplementing EMB Supplement: Yes (dad gives a bottle daily, he has less trouble with a bottle than at breast) Formula Supplement: No (initailly POC gave formula, have weaned from i) Baby Elimination Number of Wet Diapers a Day: 5- 6 times/day Number of BM a Day: 1 - 2 times/day Breast/Nipple Condition Breast Information: WNL, large Engorgement: No Maternal Nipple Condition - Left: Common Nipple Maternal Nipple Condition - Right: Common Nipple Sore Nipples: No Onsite Pre-Feed weight: 5.174 kg Post-Feed weight: 5.292 kg Milk Transferred (mL): 118 Pre-Nursing Left Nipple: Within Normal Limits Pre-Nursing Right Nipple: Within Normal Limits Post-Nursing Left Nipple: Within Normal Limits Post-Nursing Right Nipple: Within Normal Limits Assessments/Interventions Assessments/Interventions: Met with mom and this now six week old ex- late AGA baby for consult.? Mom is concerned for a lip or tongue tie b/c baby isn't satisfied for very long after nursing sessions that can last up to one hour.? She also states he looses the latch frequently and doesn't seems to have a good seal around the breast so milk will sometimes leak out.? She reports he usually sleeps for longer periods overnight.? She hasn't started pumping regularly with her electric pump, but purchased a wireless pump which she will use on one breast while she's nursing baby on the other.? Baby gets about one 4 oz bottle of EBM daily and she reports he has no trouble taking the bottle.? Breasts are large, but WNL- symmetrical with rounded lower quadrants.? Nipples are everted and don't flatten or retract with compression; no damage noted.? Baby has gained 76 grams/day since his last visit around 04/26/22 and is plotting around the 50th percentile.? Per mom he has equal ROM when turning his head and moving his extremities.? She denies any caput/cephalohematoma/bruising at delivery.? Baby's palate is WNL, his upper lip is somewhat difficult to flange.? He has a strong suck on a finger; the tongue extends past the finger and has good lateral movement.? His lower frenulum may be a little posterior.? Mom latched baby to the right side and he had a wide latch, mom was comfortable.? He maintained it for several minutes, but then started to slip off the breast.? When he came off he was repositioned so he was more tummy to tummy and mom was verbally coached to support her breast.? He latched on well and maintained it again for several minutes after mom removed the hand that was supporting her breast.? When he came off again and she re-latched him she maintained support of her breast and baby was able to keep a deep latch.? When finished baby was weighed and had transferred 62 ml.? Mom then switched him to the left and he started actively nursing again, maintaining a deep latch while mom kept support of her breast.? When he finished on the left side he had transferred 56 ml for a total of 118 ml.? Plan: 1. Nurse baby on both sides at each feeding (stop using the wireless pump on the side baby is not nursing from).? Also suggested she keep more support of her breast during feedings until his neck and jaw get a little stronger. 2. Could start pumping once/day to build a supply for her return to work and so dad can offer EBM. Suggested she use her regular pump as it's usually stronger and reserve the wireless pump for occasional use. 3. If she continues to have difficulty keeping baby latched and feedings aren't consolidating, asked her to call the office for a list of pediatric dentists so she can get him evaluated.? Am hopeful he just needs her to support her breast until he gets a little older. 4. F/U for his 2 month WCC and in prn.? Also encouraged her to consider Baby Talk.? 5. Mom and baby have the same PCP and the note for baby (same note for mom) was faxed on 05/13/22. Meds Home Medications and Allergies Home Medications Medication Instructions Recorded Confirmed Type prenat.vits,cass,hwt-bvoq-zpelh 1 tab PO QDAY 02/13/22 04/08/22 History ferrous sulfate 325 mg (65 mg 325 mg PO DAILY 03/20/22 04/08/22 History iron) tablet Allergies Allergy/AdvReac Type Severity Reaction Status Date / Time strawberry Allergy Unknown Unknown Verified 05/11/22 13:07
== END 2022-05-11 14:08 | disposition home or self-care (01) ==
PROVIDERS: PCP Family Medicine; Visit Provider Registered Nurse
DX: Z39.1 Encounter for care and examination of lactating mother (principal)
CPT/HCPCS: 99211

== ENCOUNTER 2024-05-08 11:57 | Outpatient (CLI) | payer OTHER, SELFPAY ==
--- NOTE | 2024-05-08 12:15 | CRLHL7_ITS ---
For Patients: As a result of the Century Cures Act, medical imaging exams and procedure reports are released immediately into your electronic medical record. You may view this report before your referring provider. If you have questions, please contact your health care provider. INDICATION: Pre-existing hypertension TECHNIQUE: Real time glez scale imaging of the fetus was performed. COMPARISON: None FINDINGS: Sonographic imaging demonstrates a single living intrauterine gestation. Fetus demonstrates a regular cardiac rate of 129 beats per minute. Fetus has a vertex position. The placenta lies posteriorly. Amniotic fluid volume appears normal and there is a single deepest pocket of 4.3 cm. The estimated weight is 2776gm which lies at the 86th %. BPD 67th percentile. HC 89th percentile. AC greater than 97th percentile. FL 11th percentile. The fetus was active and demonstrated normal breathing movements. There was normal flexion and extension of the trunk and extremities. IMPRESSION: Normal biophysical profile score 8/8. Sonographic gestational age 35 weeks 4 days and sonographic due date of 05/19/2024. Sonographic age 9 days ahead of the clinical age. Estimated weight 86th percentile. Abdominal circumference greater than 97th percentile. Dictated by Allan Esqueda MD @ 05/08/2024 12:39:35 PM (Electronically Signed)
== END 2024-05-08 11:58 | disposition home or self-care (01) ==
LOC: US 11:58
PROVIDERS: PCP Family Medicine; Visit Provider Obstetrics & Gynecology
DX: O10.913 Unspecified pre-existing hypertension complicating pregnancy, third trimester (principal); Z3A.35 35 weeks gestation of pregnancy
CPT/HCPCS: 76816; 76819; 82728

== ENCOUNTER 2024-05-24 14:00 | Outpatient (CLI) | payer OTHER, SELFPAY ==
--- OUTSIDE RECORDS SUMMARY | 2024-05-27 23:13 | XMS_ITS | Referral Summary ---
Author Organization [facility] Address [address] [place] [id number] Care Team Providers Care Manufacturing Design Engineer Name Role Phone No Ref-Primary, Physician Primary Care Provider Social History Tobacco Use Types Packs/Day Years Used Date Smoking Tobacco: Never Assessed Adolescent Education Answer Date Record ed Getting School Help Needed Not on file 02/06 Estimated Date of Delivery Comme nts Yes 06/17/2024 Based on Ultraso und Sex and Gender Information Value Date Recorded Sex Assigned at Not on file Gender Identity Not on file Sexual Orientation Not on file Plan of Treatment Not on file Care Teams Manufacturing Design Engineer Relationship Specialty Start Date End Date No Ref-Primary, Physician PCP - General 02/02/24
--- OUTSIDE RECORDS SUMMARY | 2024-05-27 23:13 | XMS_ITS | Clinical Summary ---
Author Organization [facility] Address [address] [place] [address]. [place] [address] Care Team Providers Care Hairspring Inspector Name Role Phone No Ref-Primary, Physician Primary [...] Orientation Not on file Plan of Treatment Health Maintenance Due Date Last Done Comments ADVANCE CARE PLANNING 1983 ANNUAL REVIEW OF HM ORDERS 1983 GLUCOSE 1983 MAMMO SCREENING 1983 YEARLY PREVENTIVE VISIT 1983 HIV SCREENING 12/05/1998 HEPATITIS C SCREENING 12/05/2001 HEPATITIS B IMMUNIZATION (1 of 3 - 19+ 3-dose series) 12/05/2002 PAP 12/05/2004 PHQ-2 (once per calendar year) 2023 MATERNAL SCREENING DISCUSSION 11/20/2023 LIPID 2023 OBGCT (OB) 02/26/2024 COVID-19 Vaccine (1 - 2023-2 5 season) 2024 INFLUENZA VACCINE (#1) 2024 06/14/2019 RSV VACCINE (1 - Risk 1-dose series) 04/22/2024 GROUP B STREP SCREENING 05/20/2024 DTAP/TDAP/TD IMMUNIZATION (3 - Td or Tdap) 02/14/2032 02/13/2022, 05/12/2016 HPV IMMUNIZATION Aged Out No longer e ligible based on patient's age to complete this topic MENINGITIS IMMUNIZATION Aged Out No l onger eligible based on patient's age to complete this topic Pneumococcal Vaccine: Pediatrics (0 to 5 Years) and At-Risk Patients (6 to 64 Years) Aged Out No longer eligible b ased on patient's age to complete this topic RSV MONOCLONAL ANTIBODY Aged Out No l onger eligible based on patient's age to complete this topic Care Teams Hairspring Inspector Relationship Specialty Start Date End Date No Ref-Primary, Physician PCP - General 02/02/24
--- OUTSIDE RECORDS SUMMARY | 2024-05-27 23:13 | XMS_ITS ---
Author Organization [facility] Address [address] [place] [address] Care Team Providers Care Customer Consultant Name Role Phone Unavailable Unavailable Unavailable Surgery Details Not on file Complications Check Surgery Details section. Procedure Estimated Blood Loss Check Surgery Details section. Procedure Findings Check Surgery Details section. Procedure Specimens Taken Check Surgery Details section.
--- OUTSIDE RECORDS SUMMARY | 2024-05-27 23:13 | XMS_ITS | Clinical Summary ---
Author Organization [facility] Address [address] [place] [address] Care Team Providers Care Elevator Repairer Apprentice Name Role Phone Unavailable Primary Care Provider Unavailabl e Source Comments Patient records contain information from all sites at [facility]. For routine questions regarding patient records, call [phone] during business hours, M-F 8:00 AM - 5:00 PM Central Time. Record requests for emergency care only can be directed to [phone] at any time.[facility] Encounters Date Type Department Care Team Description 04/17/2024 3:37 PM CDT - 04/17/2024 11:59 PM CDT Hospital Encounter Department of Radiology in [address] [id number] Moon Haque M.D. Follow Up Exam Discharge Disposition: Home or Self Care from Last 3 Months Social History Tobacco Use Types Packs/Day Years Used Date Smoking Tobacco: Never Assessed Dental Answer Date Recorded Dental: Regular Dentist Unknown 12/06/19 24 Comments Unknown Sex and Gender Information Value Date Recorded Sex Assigned at Not on file Legal Sex Female 1:49 PM CDT Gender Identity Not on file Sexual Orientation Not on file Plan of Treatment Health Maintenance Due Date Last Done Comments Cervical Cancer Screening 1983 HIV Screening 1983 Hepatitis C Screening 1983 Lipid (Cholesterol) Screening 1983 Mammogram 1983 Hepatitis B Vaccines (1 of 3 - 19+ 3-dose series) 12/05/2002 Depression Screening (Annual PHQ-2) 08/09/2023 COVID-19 Vaccine (1 - 2023-2 5 season) 2024 Influenza Vaccine (#1) 2024 06/14/2019 DTaP,Tdap,and Td Vaccines (3 - Td or Tdap) 02/14/2032 02/13/2022, 05/12/2016 HPV Vaccines Aged Out No longer eligi ble based on patient's age to complete this topic Pneumococcal vaccine (0-64 years) Aged Out No longer eligible b ased on patient's age to complete this topic Procedures Procedure Name Priority Date/Time Associated Diagnosis Comments US OB FOLLOW-UP AND OR GROWTH GOSS RAD - Routine (most inpatients and all outpatients) 04/17/2024 4:26 PM CDT Follow Up Exam from Last 3 Months Results * US OB Follow-up and or Growth Goss (04/17/2024 4:26 PM CDT) Anatomical Region Laterality Modality Body, Ultrasound OB RST LOS, Ultrasound ARZ LOS N/A Ultrasound Impressions 04/17/2024 4:47 PM CDT 1. Single living intrauterine with an established gestational age of 31 weeks and 2 days giving an BRIDGETT of 06/17/2000. Present exam measures 6 days large for dates. 2. Somewhat more than expected interval growth compared with previous exam. 3. Fetus in breech presentation. Posterior placenta without previa. Narrative 04/17/2024 4:47 PM CDT EXAM: US OB FOLLOW-UP AND OR GROWTH GOSS COMPARISON: 01/31/2024. TECHNIQUE: Transabdominal Only FINDINGS: Number of Gestations: Single Established Gestational age: 31 w 2 d, BRIDGETT: ??06/17/2024 Presentation: Breech Placenta Location: Posterior Placental Relationship to Internal Os: Normal, no previa Amniotic Fluid: Subjectively normal in volume Maximum Vertical Pocket: 4.9 cm. Age by current ultrasound measurements: 32 w 1 d Estimated weight: 1750 g. EFW %: 40.1 % heart rate: 152 Motion: Normal. Stomach: Normal. Kidneys: Normal. Bladder: Normal. Somewhat more than expected interval growth compared with previous exam. BIOMETRIC PARAMETERS: ?? BPD: 32 w 2 d 71.6 % HC: 33 w 5 d 79.9 % AC: 30 w 5 d 28.5 % FL: 31 w 4 d 41.9 % HC/AC ratio: 1.14 Uterus: No unexpected findings. Right ovary/adnexa: Not Evaluated. Left ovary/adnexa: Not Evaluated. Cervix: . Subjectively normal by Transabd evaluation only Procedure Note Jt Betancourt Jr., M.D. - 04/17/2024 EXAM: US OB FOLLOW-UP AND OR GROWTH GOSS COMPARISON: 01/31/2024. TECHNIQUE: Transabdominal Only FINDINGS: Number of Gestations: Single Established Gestational age: 31 w 2 d, BRIDGETT: 06/17/2024 Presentation: Breech Placenta Location: Posterior Placental Relationship to Internal Os: Normal, no previa Amniotic Fluid: Subjectively normal in volume Maximum Vertical Pocket: 4.9 cm. Age by current ultrasound measurements: 32 w 1 d Estimated weight: 1750 g. EFW %: 40.1 % heart rate: 152 Motion: Normal. Stomach: Normal. Kidneys: Normal. Bladder: Normal. Somewhat more than expected interval growth compared with previous exam. BIOMETRIC PARAMETERS: BPD: 32 w 2 d 71.6 % HC: 33 w 5 d 79.9 % AC: 30 w 5 d 28.5 % FL: 31 w 4 d 41.9 % HC/AC ratio: 1.14 Uterus: No unexpected findings. Right ovary/adnexa: Not Evaluated. Left ovary/adnexa: Not Evaluated. Cervix: . Subjectively normal by Transabd evaluation only IMPRESSION: 1. Single living intrauterine with an established gestationalage of 31 weeks and 2 days giving an BRIDGETT of 06/17/2000. Present exammeasures 6 days large for dates. 2. Somewhat more than expected interval growth compared with previousexam. 3. Fetus in breech presentation. Posterior placenta without previa. us Moon Haque M.D. IMG OB US PROCEDURES Maira l Result from Last 3 Months Insurance [facility]
--- OUTSIDE RECORDS SUMMARY | 2024-05-27 23:13 | XMS_ITS | Encounter Summary ---
Author Organization [facility] Address [address] [place] [address] Care Team Providers Care Attending Physician Name Role Phone Unavailable Primary Care Provider Unavailabl e Encounter Details Date Type Department Care Team (Latest Contact Info) Description 04/17/2024 3:37 PM CDT - 04/17/2024 11:59 PM CDT Hospital Encounter Department of Radiology in [place], [place] [address] [place] [id number] Moon Haque M.D. [address] [place] [phone] Follow Up Exam Discharge Disposition: Home or Self Care Social History Tobacco Use Types Packs/Day Years Used Date Smoking Tobacco: Never Assessed Dental Answer Date Recorded Dental: Regular Dentist Unknown 12/06/19 24 Comments Unknown Sex and Gender Information Value Date Recorded Sex Assigned at Not on file Legal Sex Female 1:49 PM CDT Gender Identity Not on file Sexual Orientation Not on file documented as of this encounter Plan of Treatment Not on file documented as of this encounter Procedures Procedure Name Priority Date/Time Associated Diagnosis Comments US OB FOLLOW-UP AND OR GROWTH GOSS RAD - Routine (most inpatients and all outpatients) 04/17/2024 4:26 PM CDT Follow Up Exam documented in this encounter Results * US OB Follow-up and or [...] IMG OB US PROCEDURES Maira l Result documented in this encounter Visit Diagnoses Diagnosis Follow Up Exam documented in this encounter
--- OUTSIDE RECORDS SUMMARY | 2024-05-27 23:13 | XMS_ITS | Referral Summary ---
Author Organization [facility] Address [address] [place] [address] Care Team Providers Care Retail Office Associate Name Role Phone Unavailable Primary Care Provider Unavailabl e Source Comments Patient records contain information from all sites at [facility]. For routine questions regarding patient records, call [phone] during business hours, M-F 8:00 AM - 5:00 PM Central Time. Record requests for emergency care only can be directed to [phone] at any time.[facility] Encounters Date Type Department Care Team Description 04/17/2024 3:37 PM CDT - 04/17/2024 11:59 PM CDT Hospital Encounter Department of Radiology in [address] [phone] Moon Haque M.D. Follow Up [...] file Plan of Treatment Not on file Procedures Procedure Name Priority Date/Time Associated Diagnosis [...] l Result from Last 3 Months Insurance [facility]
== END 2024-05-24 14:01 | disposition home or self-care (01) ==
LOC: NFLDREF 05-27 23:12
PROVIDERS: PCP Family Medicine; Referring Provider Family Medicine; Visit Provider Obstetrics & Gynecology
DX: O10.913 Unspecified pre-existing hypertension complicating pregnancy, third trimester (principal); O09.523 Supervision of elderly multigravida, third trimester; Z3A.36 36 weeks gestation of pregnancy
CPT/HCPCS: 87081; 87653

== ENCOUNTER 2024-06-09 12:40 | Outpatient (CLI) | payer OTHER, SELFPAY ==
--- OUTSIDE RECORDS SUMMARY | 2024-06-09 12:42 | XMS_ITS ---
Author Organization [facility] Address [address] [place] [address] Care Team Providers Care Air Control/Anti Air Warfare Officer Name Role Phone Unavailable Unavailable Unavailable Surgery Details Not on file Complications Check Surgery Details section. Procedure Estimated Blood Loss Check Surgery Details section. Procedure Findings Check Surgery Details section. Procedure Specimens Taken Check Surgery Details section.
--- OUTSIDE RECORDS SUMMARY | 2024-06-09 12:42 | XMS_ITS | Clinical Summary ---
Author Organization [facility] Address [address] [place] [address] Care Team Providers Care Cash Register Repairer Name Role Phone No Ref-Primary, Physician Primary [...] at Not on file Legal Sex Female 11:39 AM CDT Gender Identity Not on file Sexual [...] LIPID [id number] OBGCT (OB) 02/26/2024 COVID-19 Vaccine ( - 2023-2 5 season) 2024 INFLUENZA VACCINE (#1) 2024 06/14/2019 GROUP B STREP SCREENING 05/20/2024 DTAP/TDAP/TD IMMUNIZATION [...] patient's age to complete this topic RSV VACCINE (No Doses Required) Completed Insurance INDIVIDUAL FAMILY PLANS INDIV[employer]UAL [employer]ILY PLANS Care Teams Cash Register Repairer Relationship Specialty Start Date End Date No Ref-Primary, Physician PCP - General 02/02/24
--- OUTSIDE RECORDS SUMMARY | 2024-06-09 12:42 | XMS_ITS | Encounter Summary ---
Author Organization [facility] Address [address] [place] [address] Care Team Providers Care Network Administrator Name Role Phone Unavailable Primary Care Provider Unavailabl e Encounter Details Date Type Department Care Team (Latest Contact Info) Description 04/17/2024 3:37 PM CDT - 04/17/2024 11:59 PM CDT Hospital Encounter Department of Radiology in [place], [place] [address] [place] [phone] Moon Haque M.D. [address] [place] [phone] Follow Up Exam Discharge Disposition: Home or [...]
--- OUTSIDE RECORDS SUMMARY | 2024-06-09 12:42 | XMS_ITS | Referral Summary ---
Author Organization [facility] Address [address] [place] [address] Care Team Providers Care Geophysical Drafter Name Role Phone No Ref-Primary, Physician Primary [...] file Plan of Treatment Not on file [place] [address] [address] [address] INDIVIDUAL FAMILY PLANS [facility] INDIVIDUAL FAMILY PLANS Care Teams Geophysical Drafter Relationship Specialty Start Date End Date No Ref-Primary, Physician PCP - General 02/02/24
--- OUTSIDE RECORDS SUMMARY | 2024-06-09 12:42 | XMS_ITS | Clinical Summary ---
Author Organization [facility] Address [address] [place] [address] Care Team Providers Care Lead Business Systems Analyst Name Role Phone Unavailable Primary Care Provider Unavailabl e Source Comments Patient records contain information from all sites at [facility]. For routine questions regarding patient records, call [phone] during business hours, M-F 8:00 AM - 5:00 PM Central Time. Record requests for emergency care only can be directed to [phone] at any time.[facility] Encounters Date Type Department Care Team Description 04/17/2024 3:37 PM CDT - 04/17/2024 11:59 PM CDT Hospital Encounter Department of Radiology in [address] [phone] Moon Haque M.D. Follow Up [...] Health Maintenance Due Date Last Done Comments Cervical/Vaginal Cancer Screening 1983 HIV Screening 1983 Hepatitis [...] on patient's age to complete this topic IPV Vaccines Aged Out No longer eligi ble [...] l Result from Last 3 Months Insurance [facility]
--- OUTSIDE RECORDS SUMMARY | 2024-06-09 12:42 | XMS_ITS | Referral Summary ---
Author Organization [facility] Address [address] [place] [address] Care Team Providers Care Jigsawyer Name Role Phone Unavailable Primary Care Provider Unavailabl e Source Comments Patient records contain information from all sites at [facility]. For routine questions regarding patient records, call [phone] during business hours, M-F 8:00 AM - 5:00 PM Central Time. Record requests for emergency care only can be directed to [phone] at any time.[facility] Encounters Date Type Department Care Team Description 04/17/2024 3:37 PM CDT - 04/17/2024 11:59 PM CDT Hospital Encounter Department of Radiology in [address] [phone] Moon Haque M.D. Follow Up [...] l Result from Last 3 Months Insurance [facility]
--- NOTE | 2024-06-09 13:00 | CRLHL7_ITS ---
For Patients: As a result of the Century Cures Act, medical imaging exams and procedure reports are released immediately into your electronic medical record. You may view this report before your referring provider. If you have questions, please contact your health care provider. INDICATION: CHTN TECHNIQUE: Real time glez scale imaging of the fetus was performed. COMPARISON: 05/08/2024 FINDINGS: Sonographic imaging demonstrates a single living intrauterine gestation. Fetus demonstrates a regular cardiac rate of 139 beats per minute. Fetus has a vertex position. The placenta lies posteriorly. Amniotic fluid volume appears normal and there is a single deepest pocket of 5.0 cm. The estimated weight is 3649gm which lies at the 71st %. On the prior OB ultrasound dated 05/08/2024 the estimated weight was at the 86th percentile. The fetus was active and demonstrated normal breathing movements. There was normal flexion and extension of the trunk and extremities. IMPRESSION: Normal biophysical profile score 8/8. Sonographic gestational age 38 weeks 5 days and sonographic due date of 06/18/2024. Good correlation with dates. Normal interval growth. Estimated weight 71st percentile. Abdominal circumference is 90th percentile. Dictated by Allan Esqueda MD @ 06/09/2024 1:53:41 PM (Electronically Signed)
== END 2024-06-09 12:41 | disposition home or self-care (01) ==
LOC: US 12:41
PROVIDERS: PCP Family Medicine; Visit Provider Obstetrics & Gynecology
DX: O10.913 Unspecified pre-existing hypertension complicating pregnancy, third trimester (principal); Z3A.38 38 weeks gestation of pregnancy
CPT/HCPCS: 76816; 76819

== ENCOUNTER 2024-06-14 05:36 | Inpatient (IN) | payer OTHER, SELFPAY ==
[2024-06-14] VITALS (35 sets, daily range): BP systolic 120–141; BP diastolic 71–96; PULSE 56–71; RESP 16–18; TEMP 36.4–36.9; O2SAT 96–100; BMI 30.4
--- OUTSIDE RECORDS SUMMARY | 2024-06-14 05:40 | XMS_ITS | Encounter Summary ---
Author Organization [facility] Address [address] [place] [address] Care Team Providers Care Radiology Special Procedure Tech Name Role Phone Unavailable Primary Care Provider Unavailabl e Encounter Details Date Type Department Care Team (Latest Contact Info) Description 04/17/2024 3:37 PM CDT - 04/17/2024 11:59 PM CDT Hospital Encounter Department of Radiology in [place], [place] [address] [place] [phone] oMon Haque M.D. [address] [place] [phone] Follow Up Exam Discharge Disposition: Home or [...]
--- OUTSIDE RECORDS SUMMARY | 2024-06-14 05:40 | XMS_ITS | Referral Summary ---
Author Organization [facility] Address [address] [place] [address] Care Team Providers Care Director Of Logistics Name Role Phone No Ref-Primary, Physician Primary [...] Plan of Treatment Not on file [place] [place] [address] INDIVIDUAL FAMILY PLANS [facility] INDIVIDUAL FAMILY PLANS Care Teams Director Of Logistics Relationship Specialty Start Date End Date No Ref-Primary, Physician PCP - General 02/02/24
--- OUTSIDE RECORDS SUMMARY | 2024-06-14 05:40 | XMS_ITS | Referral Summary ---
Author Organization [facility] Address [address] [place] [address] Care Team Providers Care Gravity Prospecting Observer Name Role Phone Unavailable Primary Care Provider Unavailabl e Source Comments Patient records contain information from all sites at [facility]. For routine questions regarding patient records, call [phone] during business hours, M-F 8:00 AM - 5:00 PM Central Time. Record requests for emergency care only can be directed to [phone] at any time.[facility] Encounters Date Type Department Care Team Description 04/17/2024 3:37 PM CDT - 04/17/2024 11:59 PM CDT Hospital Encounter Department of Radiology in [address] [phone] Moon Haque M.D. Follow Up [...] l Result from Last [address] [facility]
--- OUTSIDE RECORDS SUMMARY | 2024-06-14 05:40 | XMS_ITS | Clinical Summary ---
Author Organization [facility] Address [address] [place] [address] Care Team Providers Care Gelatin Plant Supervisor Name Role Phone Unavailable Primary Care Provider Unavailabl e Source Comments Patient records contain information from all sites at [facility]. For routine questions regarding patient records, call [phone] during business hours, M-F 8:00 AM - 5:00 PM Central Time. Record requests for emergency care only can be directed to [phone] at any time.[facility] Encounters Date Type Department Care Team Description 04/17/2024 3:37 PM CDT - 04/17/2024 11:59 PM CDT Hospital Encounter Department of Radiology in [address] [phone] Moon Haque M.D. Follow Up [...] l Result from Last 3 Months Insurance [facility]
--- OUTSIDE RECORDS SUMMARY | 2024-06-14 05:40 | XMS_ITS | Clinical Summary ---
Author Organization [facility] Address [address] [place] [address] Care Team Providers Care Raw Finish Mill Operator Name Role Phone No Ref-Primary, Physician Primary [...] FAMILY PLANS INDIVIDUAL FAMILY PLANS Care Teams Raw Finish Mill Operator Relationship Specialty Start Date End Date No Ref-Primary, Physician PCP - General 02/02/24
--- OUTSIDE RECORDS SUMMARY | 2024-06-14 05:40 | XMS_ITS ---
Author Organization [facility] Address [address] [place] [address] Care Team Providers Care Mcat Instructor Name Role Phone Unavailable Unavailable Unavailable Surgery Details Not on file Complications Check Surgery Details section. Procedure Estimated Blood Loss Check Surgery Details section. Procedure Findings Check Surgery Details section. Procedure Specimens Taken Check Surgery Details section.
[2024-06-14 06:33] LABS: Hemoglobin* 11.3 gm/dL (12.0-16.0)
[2024-06-14] MEDS: LACTATED RINGERS 1000 ML 1,000 ML IV (06:56)
[2024-06-14 07:27] LABS: Basophils Absolute Auto 0.03 K/uL (0.00-0.30); Basophils Percent Auto 0.4 % (0.0-3.0); Eosinophils Percent Auto 1.2 % (0.0-7.0); Hematocrit 33.1 % (33.0-51.0); Hemoglobin* 11.3 gm/dL (12.0-16.0); Immature Granulocytes Pct Auto 1.2 %; Lymphocytes Percent Auto 16.5 % (20-44); Mean Corpuscular HGB Conc 34 gm/dL (32-36); Mean Corpuscular Hemoglobin 33 pg (26-34); Mean Corpuscular Volume 95 fL (80-100); Monocytes Percent Auto 8.3 % (0.0-11.0); Neutrophils Percent Auto 72.4 % (42.0-72.0); Platelet Count* 149 K/uL (140-440); RDW Coefficient of Variation % 13.5 % (11.5-15.5); Red Blood Count 3.47 m/uL (4.00-5.20); White Blood Count* 8.48 K/uL (4.50-11.00)
[2024-06-14 07:28] LABS: Slide Review Reflex No
--- NOTE | 2024-06-14 07:34 | W.PM.H&PU ---
History & Physical Update History & Physical Update H&P Reviewed and patient assessed: No changes noted
--- NOTE | 2024-06-14 07:34 | PM.OBPRCCS ---
Procedure Date of procedure: 06/14/24 Pre-op diagnosis: 1. 39 4/7 weeks gestation 2. Chronic hypertension 3. Advanced maternal age 4. History of section Post-op diagnosis: same Procedure Done: Global [facility] bill your pro fee for this procedure?: Yes Blood Loss Measurement Type: QBL Bakri Used: No IV fluids (mL): 2,200 Urine Output (mL): 100 Surgeon: Yumiko Lancaster MD Anesthesia Type: Spinal Findings: Born male , cephalic presentation, nuchal cord x1, Apgars 8 and 9 at 1 and 5 minutes respectively. Moderate adhesions from prior delivery. Normal-appearing tubes and ovaries bilaterally. Heart-shaped uterus. Procedure Name: Repeat low transverse section Procedure Description: After obtaining informed consent, the patient was taken to the operating room where spinal anesthesia was obtained and found to be adequate. She was prepared and draped in the normal sterile fashion in the dorsal supine position with a leftward tilt. A Pfannenstiel skin incision was made with a scalpel in an elliptical fashion around the line of the patient's previous Pfannenstiel scar. The scar was then grasped with two Allis clamps and excised and discarded. The incision was carried down to the underlying layer of fascia with the Bovie. The fascia was incised in the midline and the incision extended laterally. The superior and inferior aspects of the fascial incision were grasped with Miquel clamps, elevated and the underlying rectus muscles dissected off sharply and with electrocautery. The rectus muscles were then in the midline. The adhesions between the bladder and lower uterine segment were taken down sharply with Metzenbaum scissors. The John Paul O retractor was then placed into the incision. The lower uterine segment was then incised in a transverse fashion with the scalpel. Upon entry into the uterus, membranes bulged. Membranes were ruptured with a pickups and clear amniotic fluid was noted. The uterine incision was extended laterally with blunt finger fractionation. The 's head was delivered atraumatically, the nuchal cord was reduced over the head and the remainder of the infant's body was delivered. The nose and mouth were suctioned with the bulb suction. The cord was doubly clamped and cut, and the was handed off the field for evaluation. The placenta was delivered spontaneously with umbilical cord traction and fundal massage. The uterus was cleared of all clots and debris. The uterine incision was reapproximated in a running locking fashion with a 0 chromic suture. A 2nd layer of the same suture was used to imbricate in horizontal fashion. The gutters were irrigated and clots removed. All instruments and retractors were removed. The anterior peritoneum was reapproximated in a running fashion with a 3-0 Vicryl suture. The subfascial tissues were carefully inspected and hemostasis assured. The fascia was reapproximated in a running fashion with a looped 0 Maxon suture. The subcutaneous tissues were copiously irrigated. Hemostasis was assured. The subcutaneous fat layer was reapproximated with interrupted sutures of 3-0 plain gut. The skin was closed in a subcuticular fashion with 4-0 Vicryl. Surgical glue and dressing were applied. The patient tolerated the procedure well. Sponge, lap, needle, and instrument counts were reported as correct x2. The patient was taken to the recovery room, awake, and in stable condition. She did receive 2 grams of IV Ancef preoperatively. Complications: None Pathology: specimen obtained, sent to pathology (Placenta) Surgery Debrief Performed: Yes Condition: stable Disposition: floor
[2024-06-14] MEDS: CEFAZOLIN 2 GM INJ IVP (07:52)
[2024-06-14] MEDS: LACTATED RINGERS 1000 ML 1,000 ML 100 ML IV (07:59)
--- NOTE | 2024-06-14 08:20 | P.NB_ITS ---
Nerve Block Nerve Block Time Seen by Provider: 09:03 Date Seen: 06/14/24 Type of block requested by surgeon for post-operative analgesia: TAP Side: bilateral Time out performed: Yes Verification of patient name: Yes Verification of date of : Yes Site marking: site marked Name of person performing procedure: Shabbir Parker Assistants, if any: KECIA Ulloa Continuous monitoring Was continuous monitoring of O2 sat, B/P, monitor and storage bin tender, recorded every 15 minutes?: Yes Procedure Checklist: sterile prep, needles and gloves Ultrasound guided. Images saved: Yes Medications given in 5ml increments after negative aspiration: Marcaine %: 0.25 mL: 30 Needle gauge: 20 and Exparel mL: 10 Needle gauge: 20 Patient tolerated procedure well: Yes Additional comments: Injected in 5 mL increments after negative aspiration Block Charges Block Charge (with Pro Fee): TAP Bilateral Use of Ultrasound Machine for Block: Yes- US Guidance/pain block
[2024-06-14] MEDS: KETOROLAC 30 MG/ML inj IVP ×3 (08:50→20:18)
--- NOTE | 2024-06-14 09:22 | W.ANESCHARGE ---
Anesthesia Charges Start Date/Time Anesthesia Start Date: 06/14/24 Anesthesia Start Time: 07:35 Stop Date/Time Anesthesia Stop Date: 06/14/24 Anesthesia Stop Time: 09:15
[2024-06-15] VITALS (13 sets, daily range): BP systolic 109–120; BP diastolic 72–80; PULSE 58–82; RESP 16–18; TEMP 36.4–36.8; O2SAT 98–99
[2024-06-15] MEDS: KETOROLAC 30 MG/ML inj IVP ×3 (02:14→14:33)
[2024-06-15 06:31] LABS: Hemoglobin* 9.9 gm/dL (12.0-16.0)
--- NOTE | 2024-06-15 08:32 | P.OBPN_ITS ---
OB - PN:Subj Subjective Date Seen: 06/15/24 Narrative: ?The patient feels well.? The pain is well controlled with current medications.? She has no new complaints.? Urinary output is adequate and she is voiding without difficulty.? Has a good appetite, is tolerating a general diet, is pass ing flatus, and has not had a bowel movement.? Has scant amount of rubra lochia.? She is ambulating well. She is and reports it is going well.? OB - PN: Obj Exam Physical Exam: Vital signs: Temp Pulse Resp BP Pulse Ox O2 Del Method 98.0 F 58 L 18 120/78 98 Room Air 06/15/24 04:22 06/15/24 04:22 06/15/24 06:15 06/15/24 04:22 06/15/24 04:22 06/15/24 04:22 Narrative: GENERAL APPEARANCE:? normal affect, alert, no distress MOOD:? appropriate CHEST:? clear to auscultation HEART:? regular rate and rhythm ABDOMEN:? soft, non-tender the uterine fundus is 1 finger below Umbilicus, Midline and is appropriate for the stage of recovery. per nursing since pt was sitting up in the chair when I rounded. EXTREMITIES:? normal and minimal edema Incision: deferred to nursing due to patient positioning. Urinary Catheter Management: 2-way Urethral: Cath placed during this visit: no OB - PN: Obj Data Labs Labs: Laboratory Results - last 24 hr 06/15/24 06:19 Hgb 9.9 L OB - PN: A/P Delivery Plan Comments: PP day #1 s/p RCS Routine care Normotensive May see as desired Anticipate discharge 06/16/2024
[2024-06-15] MEDS: SODIUM CHLORIDE 0.9 % (FLUSH) 10 ML SYRINGE IVF (08:39)
[2024-06-15] MEDS: METOPROLOL SUCCINATE (XL) 100 MG TAB 150 MG PO (08:50)
[2024-06-15] MEDS: DOCUSATE SODIUM 100 MG CAPSULE PO (08:50)
[2024-06-15] MEDS: ACETAMINOPHEN 500 MG TABLET 1000 MG PO (17:40)
[2024-06-16] MEDS: IBUPROFEN 600 MG TABLET PO ×2 (00:10→09:13)
[2024-06-16 00:11] VITALS: BP 113/72; PULSE 67; RESP 18; TEMP 36.4; O2SAT 99
[2024-06-16 01:58] LABS: Rapid Plasma Reagin (RPR) Non Reactive (Non Reactive)
[2024-06-16] MEDS: ACETAMINOPHEN 500 MG TABLET 1000 MG PO (05:41)
[2024-06-16 07:49] VITALS: BP 118/78; PULSE 55; RESP 18; TEMP 36.6; O2SAT 100
--- NOTE | 2024-06-16 08:03 | P.DS_ITS ---
DS: Providers Provider Date Seen: 06/16/24 Date of admission: 06/14/24 05:36 Primary care physician: Flor Patel MD Admitting Clinician: Yumiko Lancaster MD Attending Physician on discharge: Yumiko Lancaster MD Date of Discharge: 06/16/24 DS: Diagnosis Discharge Diagnosis (1) Lactating mother: Status: Resolved (2) care following delivery: Status: Acute (3) Chronic hypertension affecting : Status: Acute Exam Narrative: Exam Narrative: GENERAL APPEARANCE:? normal affect, alert, no distress? MOOD:? appropriate? CHEST:? clear to auscultation and percussion? HEART:? regular rate and rhythm? ABDOMEN:? soft, non-tender the uterine fundus is U/2 and is appropriate for the stage of recovery. Incision is well approximated without redness, drainage, or edema.?Glue closure is intact. EXTREMITIES:? normal and no edema? Const: Vital Signs, click to edit/add: Vital Signs - 24 hr 06/15/24 08:15 06/15/24 08:40 06/15/24 14:20 Temperature 97.6 F Pulse Rate [Pulse Oximeter] 68 82 Respiratory Rate 18 18 16 Blood Pressure [Ri ght Arm] 110/76 109/72 Pulse Oximetry 99 98 Oxygen Delivery Me thod Room Air Room Air 06/16/24 00:11 Temperature 97.6 F Pulse Rate [Pulse Oximeter] 67 Respiratory Rate 18 Blood Pressure [Ri ght Arm] 113/72 Pulse Oximetry 99 Oxygen Delivery Me thod Room Air Documenting provider has reviewed patient's vital signs: yes OB - DS: Summary Hospital Course Hospital Course: Mindi is a 38 year old G 3 P 2 at 39.4 weeks gestation that was admitted to the Center on 06/14/24 for repeat delivery. She had an uncomplicated delivery. She delivered a viable male infant. She is breast feeding and denies concerns with how it is going. the patient has done well. Her pain is well controlled with current medications.? She has no new complaints.? Urinary output is adequate and she is voiding without difficulty.? Has a good appetite, is tolerating a general diet, is passing flatus, and has not yet had a bowel movement.? Has scant amount of rubra lochia.? She is ambulating well. She declines a prescription for oxycodone for home use as she has not needed any since delivery. She will plan to continue to monitor her blood pressures at home and continue with her BP medication. She will also continue to take PO iron supplement. She is planning on NFP for contraception and has this successfully in the past. At this time she is planning on doing her visit with her previous provider in [place] but she is aware that she can be seen here if she changes her mind. Peripartum Data delivery method: Repeat Section Procedures: Procedures Operation Date: 06/14/24 07:15 Actual Procedure Side Surgeon p Repeat Section Yumiko Lancaster MD complications: none [place] Infant Gender: Male Discharge Plan: Home Status at Discharge Functional status at discharge: independent ambulation Overall status at discharge: patient is progressing back to baseline Time Spent with Patient Time attestation: Total time spent providing and/or coordinating discharge services: Discharge Plan Discharge Disposition: Home, Self-Care Date of Admission: 06/14/24 05:36 Attending Provider on Discharge: Teri Donahue Discharge Medications: New docusate sodium 100 mg Capsule 100 mg PO DAILY Qty: 60 0RF Rx Instructions: Take 1-2 tablets daily as needed for constipation. ibuprofen 600 mg Tablet 600 mg PO Q6H PRN (Reason: Pain) Qty: 90 0RF Continued prenat.vits,cass,yyp-uszu-nwwou Tablet 1 tab PO QDAY (DME) Blood Pressure Cuff Misc See Rx Instructions .Route Qty: 1 0RF Rx Instructions: As directed metoprolol succinate 100 mg tablet extended release 24 hr 150 mg PO DAILY ferrous sulfate 325 mg (65 mg iron) tablet 325 mg PO QDAY Discharge Orders: Discharge Order (Routine); Ordered 06/16/24 Ordered By: Teri Donahue Consulting provider completed their portion of the discharge: Yes Patient Education: OB /Breast Feeding Additional Instructions: Follow up with provider in 2 and 6 weeks Activity Level: Activity as Tolerated Discharge Diet: Regular Follow Up Appointments: [facility] Group] Flor Patel MD [Primary Care Provider] - Forms: [employer] Info Instructions
[2024-06-16] MEDS: DOCUSATE SODIUM 100 MG CAPSULE PO (09:13)
== END 2024-06-16 11:05 | disposition home or self-care (01) | DRG 787 ==
PROVIDERS: Nurse Anesthetist, Certified Registered; Admitting Provider Obstetrics & Gynecology; PCP Family Medicine; Visit Provider Obstetrics & Gynecology
PROC: 10D00Z1 Extraction of Products of Conception, Low, Open Approach (ICD-10-PCS; CPT 59514; principal; 2024-06-14 07:15)
DX: O34.211 Maternal care for low transverse scar from previous cesarean delivery (principal); O10.02 Pre-existing essential hypertension complicating childbirth; O99.02 Anemia complicating childbirth; D64.9 Anemia, unspecified; Z3A.39 39 weeks gestation of pregnancy; Z37.0 Single live birth; O34.03 Maternal care for unspecified congenital malformation of uterus, third trimester; Q51.3 Bicornate uterus; G89.18 Other acute postprocedural pain
CPT/HCPCS: 01961; 36415; 64488; 76942; 85018; 85025; 86592; 86850; 86900; 86901; 88307; A9270; C9290; J0665; J0690; J1100; J1885; J2274; J2371; J2405; J2590; J7120